=== PATIENT | male | born 1995 | race Caucasian/White ===

== ENCOUNTER 2021-01-23 22:31 | Emergency (ER) | payer OTHER ==
[~2021-01-23 22:31] MED LIST: ATARAX25 MG PO; AUGMENTIN 875-1 EACH PO; FIORICET1 EACH PO; FLEXERIL10 MG PO; IBUPROFEN800 MG PO; LOTRISONE CREAM15 GM TOP; NEXIUM 24HR20 M1 PO; NORVASC5 MG PO; PRINIVIL10 MG PO; WELLBUTRIN75 MG PO
[2021-01-23 23:04] LABS: BASOPHIL 0.4 % (0-2); HCT 43.3 % (42.0-52.0); HGB 14.8 g/dl (13.2-18.0); LYMPHOCYTE 28.1 % (15-48); MCH 28.8 pg (25.0-31.0); MCHC 34.2 g/dL (32.0-36.0); MCV 84.2 fL (78.0-100.0); MONOCYTE 8.6 % (0-12); MPV 10.9 fL (6.0-9.5); NEUTROPHIL 59.6 % (41-80); NRBC 0; PLT 198 K/uL (150-400); RBC 5.14 M/uL (4.70-6.00); RDW 12.2 % (11.5-14.0); WBC 6.7 K/uL (4.0-10.5)
[2021-01-23 23:11] LABS: BILIRUBIN NEGATIVE (NEGATIVE); BLOOD NEGATIVE Ery/uL (NEGATIVE); CLARITY CLEAR (CLEAR); COLOR YELLOW (YELLOW); GLUCOSE (U) NORMAL (NORMAL); LEUKOCYTES NEGATIVE Leu/uL (NEGATIVE); NITRITE NEGATIVE (NEGATIVE); PROTEIN NEGATIVE (NEGATIVE); SPECIFIC GRAVITY 1.025 (1.001-1.030); UROBILINOGEN 0.2 mg/dL (0.2-1.0); pH 6.5 (5.0-9.0)
[2021-01-23 23:14] LABS: AMPHETAMINES NEGATIVE (NEGATIVE); BARBITURATES NEGATIVE (NEGATIVE); ECSTASY (MDMA) NEGATIVE (NEGATIVE); MARIJUANA (THC) NEGATIVE (NEGATIVE); METHADONE NEGATIVE (NEGATIVE); OPIATES NEGATIVE (NEGATIVE); OXYCODONE NEGATIVE (NEGATIVE)
[2021-01-23 23:25] LABS: ALBUMIN 4.2 g/dL (3.4-5.0); BILIRUBIN - TOTAL 0.4 mg/dL (0.2-1.0); BUN/CREAT RATIO (CALC) 17.6 RATIO; CREATININE 0.91 mg/dL (0.67-1.17); GLOBULIN (CALCULATION) 3.5 g/dL; TOTAL PROTEIN 7.7 g/dL (6.4-8.2)
[2021-01-24] MEDS ORDERED: NAPROSYN500 MG PO (01:22)
[2021-01-24] MEDS ORDERED: ONDANSETRON ODT4 MG PO (01:22)
== END 2021-01-24 01:42 | disposition home or self-care (01) ==
LOC: FER 22:31
PROVIDERS: Internal Medicine
DX: R10.31 Right lower quadrant pain (principal); R05.9 Cough, unspecified; I10 Essential (primary) hypertension; F17.290 Nicotine dependence, other tobacco product, uncomplicated; Z88.6 Allergy status to analgesic agent
CPT/HCPCS: 36415; 80053; 80305; 81003; 82150; 83690; 84145; 85025; J1170; J2405; Q9967

== ENCOUNTER 2021-02-03 10:36 | Emergency (ER) | payer OTHER ==
[~2021-02-03 10:36] MED LIST changes: +NAPROSYN500 MG PO; +ONDANSETRON ODT4 MG PO
[2021-02-03 12:20] LABS: BASOPHIL 0.1 % (0-2); EOSINOPHIL 0.7 % (0-5); HCT 44.1 % (42.0-52.0); HGB 15.1 g/dl (13.2-18.0); LYMPHOCYTE 7.2 % (15-48); MCH 28.3 pg (25.0-31.0); MCHC 34.2 g/dL (32.0-36.0); MCV 82.6 fL (78.0-100.0); MONOCYTE 7.3 % (0-12); MPV 10.9 fL (6.0-9.5); NEUTROPHIL 84.3 % (41-80); NRBC 0; PLT 254 K/uL (150-400); RBC 5.34 M/uL (4.70-6.00); RDW 12.1 % (11.5-14.0); WBC 9.7 K/uL (4.0-10.5)
[2021-02-03 12:42] LABS: ALBUMIN 4.1 g/dL (3.4-5.0); BILIRUBIN - TOTAL 0.7 mg/dL (0.2-1.0); BUN/CREAT RATIO (CALC) 13.9 RATIO; CREATININE 1.08 mg/dL (0.67-1.17); GLOBULIN (CALCULATION) 3.1 g/dL; TOTAL PROTEIN 7.2 g/dL (6.4-8.2)
[2021-02-03 12:44] LABS: LACTIC ACID 0.8 mmol/L (0.4-1.9)
[2021-02-03 13:49] LABS: BILIRUBIN 1+ mg/dL (NEGATIVE); BLOOD NEGATIVE Ery/uL (NEGATIVE); CLARITY CLEAR (CLEAR); COLOR YELLOW (YELLOW); GLUCOSE (U) NORMAL (NORMAL); LEUKOCYTES NEGATIVE Leu/uL (NEGATIVE); NITRITE NEGATIVE (NEGATIVE); PROTEIN NEGATIVE (NEGATIVE); SPECIFIC GRAVITY 1.015 (1.001-1.030); UROBILINOGEN 0.2 mg/dL (0.2-1.0)
[2021-02-03 14:41] LABS: INFLUENZA A NAA NEGATIVE (NEGATIVE)
[2021-02-03 14:51] LABS: CORONAVIRUS 2019 SARS-COV-2 POSITIVE (NEGATIVE)
[2021-02-03] MEDS ORDERED: ONDANSETRON ODT4 MG PO (14:57)
[2021-02-03] MEDS ORDERED: PEPCID AC20 MG PO (14:57)
== END 2021-02-03 15:07 | disposition home or self-care (01) ==
LOC: FER 10:36
PROVIDERS: Emergency Medicine
DX: U07.1 COVID-19 (principal); I10 Essential (primary) hypertension; F17.290 Nicotine dependence, other tobacco product, uncomplicated; Z88.6 Allergy status to analgesic agent
CPT/HCPCS: 36415; 80053; 81003; 83605; 84145; 85025; 87040; C9113; J2405; J7030; Q9967; U0002